=== PATIENT | female | born 1985 | race Caucasian/White ===

== ENCOUNTER 2017-11-22 18:49 | Emergency (ER) | payer OTHER ==
--- NOTE | 2017-11-22 20:53 | RAD ---
Indication: Left hand pain. 4 views of left hand demonstrates a bony fragment off the radial aspect of the head of the fifth metacarpal. Age of this is undetermined however avulsion is not totally occluded although this may represent calcifications from prior injury. Proximal interphalangeal joint is unremarkable. Joint space are well-preserved. IMPRESSION: Bony fragment adjacent to the head of the fifth metacarpal. This is felt to represent old injury however clinical correlation is suggested to exclude an avulsion fracture.
[2017-11-22] MEDS ORDERED: Ibuprofen TAB* 600 MG PO ONE (21:13)
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
[2017-11-22 21:47] VITALS: BP 129/74
== END 2017-11-22 21:53 | disposition home or self-care (01) ==
LOC: ED 18:49
DX: S62.307A Unspecified fracture of fifth metacarpal bone, left hand, initial encounter for closed fracture (principal); Y08.89XA Assault by other specified means, initial encounter; Y92.9 Unspecified place or not applicable; F17.210 Nicotine dependence, cigarettes, uncomplicated
CPT/HCPCS: 99282; A9270-GY

== ENCOUNTER 2019-07-14 19:45 | Emergency (ER) | payer OTHER ==
--- NOTE | 2019-07-14 19:48 | UC ---
Throat Pain/Nasal Jack HPI - HPI Summary HPI Summary: 34 yo female presents with cold symptoms. She tells me that 2 days ago she developed a scratchy throat and dry cough. Since that time she has had post nasal drip and a runny nose as well. She has been taking OTC tylenol cold medicine with little relief. She denies fever, chills, SOB, rash, n/v. She is eating and drinking well. Tolerating po well, but has pain with swallowing. - History of Current Complaint Stated Complaint: COLD SYMPTOMS Time Seen by Provider: 07/14/19 19:48 Hx Obtained From: Patient Hx Last Menstrual Period: NOW Onset/Duration: Gradual Onset Severity: Moderate Pain Intensity: 5 Pain Scale Used: 0-10 Numeric - Allergies/Home Medications Allergies/Adverse Reactions: Allergies Allergy/AdvReac Type Severity Reaction Status Date / Time Adhesive Tape Allergy Rash Verified 07/14/19 19:56 No Known Allergies Allergy Unverified 07/14/19 19:56 Home Medications: Home Medications D-Methorphan/PE/Acetaminophen [Vicks Dayquil Cold & Flu] 3 cap PO 07/14/19 [ History] Guaifen/Phenyleph/Acetaminophn [Tylenol Sinus Severe Caplet] 1 each PO 07/14/19 [History] PMH/Surg Hx/FS Hx/Imm Hx - Additional Past Medical History Additional PMH: None - Surgical History Surgical History: Yes Surgery Procedure, Year, and Place: oral surgery in dental office - 2016 [place] - Family History Known Family History: Positive: Unknown, Cardiac Disease, Diabetes Family History: FHx of lung CA - Social History Lives: With Family Alcohol Use: Rare Substance Use Type: None Smoking Status (MU): Current Every Day Smoker Type: Cigarettes, eCigarettes Amount Used/How Often: reports 4 cigs per day plus vapes Length of Time of Smoking/Using Tobacco: reports been smoking since 2 yrs old Have You Smoked in the Last Year: Yes Review of Systems All Other Systems Reviewed And Are Negative: No Constitutional: Positive: Negative Skin: Positive: Negative Eyes: Positive: Negative ENT: Positive: Sore Throat, Nasal Discharge Respiratory: Positive: Cough Cardiovascular: Positive: Negative Gastrointestinal: Positive: Negative Neurovascular: Positive: Negative Neurological: Positive: Negative Psychological: Positive: Negative Physical Exam - Summary Physical Exam Summary: GENERAL: NAD. WDWN. No pain distress. SKIN: No rashes, sores, lesions, or open wounds. HEENT: Head: AT/NC Eyes: EOM intact. Conjunctiva clear without inflammation or discharge. Ears: Hearing grossly normal. TMs intact, no bulging, erythema, or edema. Nose: Nasal mucosa pink and moist. NTTP maxillary and frontal sinus. Throat: Posterior oropharynx without exudates, erythema, or tonsillar enlargement. Uvula midline. Positive post nasal drip NECK: Supple. Nontender. No lymphadenopathy. CHEST: CTAB. No r/r/w. No accessory muscle use. Breathing comfortably and in no distress. CV: RRR. Without m/r/g. Pulses intact. Cap refill <2seconds NEURO: Alert. PSYCH: Age appropriate behavior. Triage Information Reviewed: Yes Vital Signs: Vital Signs: Temp Pulse Resp BP Pulse Ox 98.4 F 81 18 124/77 97 07/14/19 19:53 07/14/19 19:53 07/14/19 19:53 07/14/19 19:53 07/14/19 19:53 Vital Signs Reviewed: Yes Throat Pain/Nasal Course/Dx - Course Course Of Treatment: Pt is afebrile and exam is WNL. Suspect viral illness with post nasal drip causing her throat irritation. Will rx for claritin, mucinex, and tessalon. Advised to f/u if her symptoms do not improve - Differential Dx/Diagnosis Provider Diagnosis: Viral illness, Post-nasal drip Discharge ED - Sign-Out/Discharge Documenting (check all that apply): Patient Departure All imaging exams completed and their final reports reviewed: No Studies - Discharge Plan Condition: Stable Disposition: HOME Prescriptions: Benzonatate CAP* [Tessalon 100 MG CAP*] 100 mg PO TID PRN #21 cap PRN Reason: Cough guaiFENesin ER TAB [Mucinex*] 600 mg PO BID #14 tab.er Loratadine [Claritin] 10 mg PO DAILY #14 tablet Patient Education Materials: Pharyngitis (ED), Postnasal Drip (DC) Referrals: Beatrice Jackson MD [Primary Care Provider] - Additional Instructions: If you develop a fever, shortness of breath, chest pain, new or worsening symptoms - please call your PCP or go to the ED immediately. If your symptoms do not improve within 5-7 days, please be rechecked by your primary doctor - Billing Disposition and Condition Condition: STABLE Disposition: Home
--- OUTSIDE RECORDS SUMMARY | 2019-07-14 19:52 | XMS REPORT | Summary of Care ---
:1985 Author Organization [facility] Address [address] [place] [address] Care Team Providers Name Role Phone Beatrice Jackson MD Primary Care Provider Reason for Visit Reason Comments New Patient Dr De Leon patient Kidney Stone Encounter Details Date Type Department Care Team Description 06/03/2019 Office Visit [facility], Gilbert, Calculus of kidney (Primary Dx); 1 Margarita Jones MD UPJ (ureteropelvic junction) obstruction [place] [id number] [address] [phone] [place] [address] Allergies Active Allergy Reactions Severity Noted Date Comments Environmental SHAPE CARVER Reaction 05/10/2017 documented as of this encounter (statuses as of 06/03/2019) Medications Medication Sig Dispensed Refills Start Date End Date Status Acetaminophen Take 650 mg by 0 Active (TYLENOL) 325 MG Oral mouth. Cap ibuprofen (MOTRIN) Take 400 mg by 0 Active 200 MG Oral Tab mouth EVERY SIX HOURS NEEDED for Pain. cyclobenzaprine Take 1 Tab by 30 Tab 0 04/02/2019 Active (FLEXERIL) 10 MG Oral mouth EVERY Tab BEDTIME. polyethylene glycol Take 17 g by 1 Bottle 1 05/11/2019 Active (MIRALAX) Oral mouth DAILY PowderIndications: NEEDED Constipation, (constipation) unspecified . Mix with 8 constipation type oz water or juice ciprofloxacin (CIPRO) Take 1 Tab by 1 Tab 0 05/05/2019 Discontinued 500 MG Oral Tab mouth 9 DIRECTED. Take 1 tab 1 hour prior to procedure documented as of this encounter (statuses as of 06/03/2019) Active Problems Problem Noted Date Kidney stone 04/20/2019 Overview: Added automatically from request for surgery [id number] Calculus of kidney 08/01/2017 Overview: Added automatically from request for surgery [id number] Migraine documented as of this encounter (statuses as of 06/03/2019) Immunizations Name Administration Dates Next Due TDAP Vaccine 05/11/2019 documented as of this encounter Social History Tobacco Use Types Packs/Day Years Used Date Current Every Day Smoker Cigarettes 0.25 30 Smokeless Tobacco: Never Used Comments: vapes Alcohol Use Drinks/Week oz/Week Comments No Sex Assigned at Date Recorded Not on file Job Start Date Occupation Industry Not on file Not on file Not on file Travel History Travel Start Travel End No recent travel history available. documented as of this encounter Last Filed Vital Signs Vital Sign Reading Time Taken Comments Blood Pressure 126/84 06/03/2019 8:26 AM EDT Pulse - - Temperature 36.1 06/03/2019 8:26 AM EDT C (96.9 F) Respiratory Rate - - Oxygen Saturation - - Inhaled Oxygen Concentration - - Weight - - Height - - Body Mass Index - - documented in this encounter Progress Notes Gilbert Khan MD - 06/03/2019 8:15 AM EDT PATIENT: Juan Mary : 1985 DATE OF SERVICE: 06/03/2019 REFERRING PRACTITIONER: Zayda Smith PRIMARY CARE PROVIDER: Beatrice Jackson CHIEF COMPLAINT: Chief Complaint Patient presents with New Patient Dr De Leon patient Kidney Stone HISTORY OF PRESENT ILLNESS: Juan Mary is a 34-y.o. female patient new to me She has been referred by Dr. Carlo Smith. On 05/04/2019 she underwent left -sided retrograde pyelogram, left flexible ureteral renoscopy and lasering of 5 mm midpole stone. A stone in the lower pole on the left kidney could not be reached due to calyceal anatomy and she may be choosing to have ESWL at a later date. Findings confirmed left-sided UPJ obstruction on the right retrograde pyelogramand this information is not new as a CT urogram in 2017 had confirmed this. At that time, she was meant to undergo left-sided stone management but she deferred it due to some family commitments. Her left side stent in the ureter inserted recently has been removed. Today, she is here to discuss management of left-sided UPJ obstruction. She has no Dietl's crisis although she does have abdominal pain on the left side.. She has had a renograms which confirms almost equal split function in both the kidneys and left-sided dilatation but no functional obstruction. Normal renal function noted on BMP. CT 2017 There is moderate left pyelocaliectasis which appears to be due to a ureteropelvic junction stricture without stone or mass detected at that level. There is little true obstruction as kidney enhances symmetrically in the collecting system fills completely on short-term delayed study.There are 2 stones identified in the left kidney, causing no obstruction. Right side is normal. Recent left Retrograde pyelogram MAG 3 renogram 05/21/2019 No scintigraphic evidence of high-grade obstruction. Findings consistent with dilatation without mechanical obstruction in the left kidney (i.e., 'functional obstruction'), with normal response to Lasix. Past Medical History: Diagnosis Date Chronic kidney disease one kidney smaller than other Environmental allergies Frequent UTI Gestational diabetes Migraine Nephrolithiasis Seizures (HCC) ? as child Past Surgical History: Procedure Laterality Date DENTAL OPERATION NEC DE CYSTO/URETERO/PYELOSCOPY W/LITHOTRIPSY Left 05/04/2019 Procedure: Left Retrograde Uretero-pyelogram Left Flexible ureteropyeloscopy . Laser to stone . Left ureteric Stent insertion; Surgeon: Zayda Smith MD; Location: MAIN OR UNLISTED PROCEDURE,MUSCULOSKELE left hand Family History Problem Relation Age of Onset Lung Cancer Mother Psychiatry Father bipolar Asthma Father No Known Problems Daughter Genetic Son autism spectrum No Known Problems Daughter No Known Problems Daughter No Known Problems Son No Known Problems Son No Known Problems Son Heart Sister extra beat Heart Brother congenital, defect closed No Known Problems Other Current Outpatient Medications Medication Sig Acetaminophen (TYLENOL) 325 MG Oral Cap Take 650 mg by mouth. cyclobenzaprine (FLEXERIL) 10 MG Oral Tab Take 1 Tab by mouth EVERY BEDTIME. ibuprofen (MOTRIN) 200 MG Oral Tab Take 400 mg by mouth EVERY SIX HOURS NEEDED for Pain. polyethylene glycol (MIRALAX) Oral Powder Take 17 g by mouth DAILY NEEDED (constipation). Mix with 8 oz water or juice No current facility-administered medications for this visit. Allergies Allergen Reactions Environmental SHAPE CARVER Reaction Social History Socioeconomic History Marital status: Spouse name: Not on file Number of children: Not on file Years of education: Not on file Highest education level: Not on file Occupational History Not on file Social Needs Financial resource strain: Not on file Food insecurity: Worry: Not on file Inability: Not on file Transportation needs: Medical: Not on file Non-medical: Not on file Tobacco Use Smoking status: Current Every Day Smoker Packs/day: 0.25 Years: 30.00 Pack years: 7.50 Types: Cigarettes Smokeless tobacco: Never Used Tobacco comment: vapes Substance and Sexual Activity Alcohol use: No Drug use: No Sexual activity: Yes Partners: Male Comment: none Lifestyle Physical activity: Days per week: Not on file Minutes per session: Not on file Stress: Not on file Relationships Social connections: Talks on phone: Not on file Gets together: Not on file Attends buddhism service: Not on file Active member of club or organization: Not on file Attends meetings of clubs or organizations: Not on file Relationship status: Not on file Intimate partner violence: Fear of current or ex partner: Not on file Emotionally abused: Not on file Physically abused: Not on file Forced sexual activity: Not on file Other Topics Concern Back Care Not Asked Bike Helmet Not Asked Blood Transfusions Not Asked Caffeine Concern Not Asked Exercise Not Asked Hobby Hazards Not Asked International Travel Not Asked Service Not Asked Occupational Exposure Not Asked Seat Belt Not Asked Self-Exams Not Asked Sleep Concern Not Asked Special Diet Not Asked Stress Concern Not Asked Weight Concern Not Asked Social History Narrative Lives with , 4 sons, 3 daughters REVIEW OF SYSTEMS: A comprehensive review of systems was negative except for as noted in the history of present illness/subjective. PHYSICAL EXAMINATION: VITALS: BP 126/84 | Temp 96.9 F (36.1 C) | LMP 05/04/2019 There is no height or weight on file to calculate BMI. GENERAL: healthy, well nourished, in no distress. EYES: Pupils are equil and reactive to light, conjunctiva normal HEENT: Right and left ears normal. NECK: no jugular venous distention. LUNGS: Effort normal . HEART: rate normal. ABDOMEN: Soft, nontender, non distended, no masses felt, no hepatosplenomegaly. GENITOURINARY: No loin tenderness . RECTAL: exam deferred. SKIN: normal, no rashes or abnormalities noted. NEUROLOGICAL: alert and oriented x3. PSYCHOLOGICAL: Mood and affect normal. Behavior is normal. IMPRESSION: ICD-9-CM ICD-10-CM 1. Calculus of kidney 592.0 N20.0 URINE DIP CLINITEK (AMB POCT) 2. UPJ (ureteropelvic junction) obstruction 593.4 N13.5 During this visit, I reviewed the relevant imaging, pathology reports, laboratory reports, and previous clinical notes. Additional counseling and preparation time (which represents > 50 % of total visit time) was necessary for data gathering, reviewing studies and discussing options, in excess of interviewing the patient and/or family members. This time was used to discuss the the complex nature of the problem, various treatment options available and the expected outcomes of each to the patient/family's satisfaction. This 34-year-old lady has had a CT urogram, retrograde pyelogram and MAG3 findings confirming of left UPJ obstruction. She is not really symptomatic in that she has no Dietl's crisis although she has abdominal pain on the left side which may or may not be related to the UPJ obstruction. The renogramshows dilatation but no real obstruction as following Lasix administration the curves showed no obstruction. I have shared the images as above with her. She could potentially undergo left-sided robotic assisted laparoscopic pyeloplasty but I have said that there are no guarantees that her abdominal pain will settle down. Equally, she may well want to choose the surgery in the hope that the pain will settle as well as to prevent future issues such as infection or further stone formation. I have given her informational material on UPJ obstruction andhave given her no follow-up. She will let me know if she [place], or call and schedule for robotic pyeloplasty as today we went over the procedure, the convalescence etc. She may well choose to speak to Dr. Middleton to follow- up for the stonesalone and may choose not to undergo management for the left UPJ obstruction. Author: Gilbert Khan MD 06/03/2019 09:06 documented in this encounter Plan of Treatment Date Type Specialty Care Team Description 08/17/2019 Office Visit Family Practice Beatrice Jackson MD [address] [place] [address] [phone] Health Maintenance Due Date Last Done Comments PAP SMEAR 1985 PNEUMOCOCCAL 0-64 YRS (1 of 1 - 01/28/1990 PPSV23) INFLUENZA VACCINE (#1) 2019 DEPRESSION SCREENING 04/02/2020 04/02/2019 HPV IMMUNIZATION SERIES Aged Out No longer eligible based on patient's age to complete this topic MENINGOCOCCAL VACCINE IMM Aged Out No longer eligible based on patient's age to complete this topic documented as of this encounter Procedures Procedure Name Priority Date/Time Associated Diagnosis Comments URINE DIP CLINITEK Routine 06/03/2019 8:44 AM [facility] Results for this (AMB POCT) EDT procedure are in the results section. documented in this encounter Results URINE DIP CLINITEK (AMB POCT) (06/03/2019 8:44 AM EDT) URINE GLUCOSE (POCT) Negative Negative mg/dl [facility] POCT URINE BILIRUBIN Negative Negative [facility] (POCT) POCT Urine Ketones (POCT) Negative Negative [facility] POCT URINE SPECIFIC 1.025 1.005 - 1.030 [facility] GRAVITY (POCT) POCT URINE BLOOD (POCT) Moderate (A) Negative [facility] POCT URINE PH (POCT) 5.5 5.0 - 8.0 [facility] POCT URINE PROTEIN (POCT) Negative Negative mg/dl [facility] POCT URINE UROBILINOGEN 0.2 0.2 - 1.0 mg/dl [facility] (POCT) POCT URINE NITRITES Negative Negative [facility] (POCT) POCT URINE LEUKOCYTES Negative Negative [facility] (POCT) Cells/uL POCT Specimen Urine Performing Organization Address City/State/Zipcode Phone Number [facility] [address] [place] [address] documented in this encounter Visit Diagnoses Diagnosis Calculus of kidney - Primary UPJ (ureteropelvic junction) obstruction Other ureteric obstruction documented in this encounter documented as of this encounter"
[2019-07-14 19:56] VITALS: BP 124/77
== END 2019-07-14 20:19 | disposition home or self-care (01) ==
LOC: UCEAST 19:45
DX: B34.9 Viral infection, unspecified (principal); R09.82 Postnasal drip; F17.210 Nicotine dependence, cigarettes, uncomplicated
CPT/HCPCS: 99212; G0463